=== PATIENT | male | born 1985 | race African-American/Black ===

== ENCOUNTER 2018-01-31 21:50 | Emergency (ER) | payer OTHER ==
[~2018-01-31] VITALS: Ht 175.3 cm; Wt 120.5 kg
[2018-01-31 21:55] VITALS: BP 136/90; TEMP 97.8
[2018-01-31 23:50] VITALS: PULSE 102
== END 2018-01-31 23:49 | disposition home or self-care (01) ==
LOC: COL.ER 21:50
DX: S01.512A Laceration without foreign body of oral cavity, initial encounter (principal); Y04.0XXA Assault by unarmed brawl or fight, initial encounter

== ENCOUNTER 2023-01-10 13:15 | Day surgery (SDC) | payer SELFPAY ==
[~2023-01-10] VITALS: Ht 175.3 cm; Wt 123.3 kg
[~2023-01-10 13:15] MED LIST: NORCO 325 MG-51 TAB PO; ZOFRAN ODT4 MG PO
[2023-01-10 13:51] VITALS: BP 143/94; PULSE 68; TEMP 97.3
[2023-01-10] MEDS ORDERED: PRILOTC PO (13:56)
[2023-01-10] MEDS ORDERED: CLARITIN 1010 MG/TAB PO (13:56)
[2023-01-10] MEDS ORDERED: CARAFATE 1GM1 G PO (15:30)
[2023-01-10 15:35] VITALS: BP 130/99; PULSE 73; TEMP 97.2
[2023-01-10 15:50] VITALS: BP 120/79; PULSE 85
--- NOTE | 2023-01-10 17:06 | NUR ---
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 D/C INSTRUCTIONS, ANY FOLLOW UP REVIEWED AND HANDED TO PT. ALL QUESTIONS AND CONCERNS ADDRESSED TO PT SATISFACTION. TAKEN TO EXIT VIA W/C WITH ALL BELONGINGS AND PAPERWORK IN HAND, ASSISTED INTO PASSENGER SEAT OF POV. TO DRIVE HOME.
== END 2023-01-10 16:15 | disposition home or self-care (01) ==
LOC: SDCO 13:15
DX: K29.01 Acute gastritis with bleeding (principal); K29.51 Unspecified chronic gastritis with bleeding; K21.00 Gastro-esophageal reflux disease with esophagitis, without bleeding; B96.81 Helicobacter pylori [H. pylori] as the cause of diseases classified elsewhere; K44.9 Diaphragmatic hernia without obstruction or gangrene; K80.20 Calculus of gallbladder without cholecystitis without obstruction; F17.210 Nicotine dependence, cigarettes, uncomplicated
CPT/HCPCS: J2704; J7120

== ENCOUNTER 2024-04-23 20:51 | Emergency (ER) | payer OTHER ==
[~2024-04-23] VITALS: Ht 175.3 cm; Wt 122.7 kg
[~2024-04-23 20:51] MED LIST changes: +CARAFATE 1GM1 G PO; +CLARITIN 1010 MG/TAB PO; +PRILOTC PO
[2024-04-23 21:04] VITALS: TEMP 97.8
[2024-04-23] MEDS ORDERED: PREDNISONE20 MG PO (21:44)
[2024-04-23] MEDS ORDERED: Ketorolac 30 MG/ML VIAL IM ONE (21:45)
[2024-04-23] MEDS ORDERED: Morphine 10 MG/ML VIAL IM ONE (21:45)
[2024-04-23 22:18] VITALS: BP 135/90; PULSE 87
== END 2024-04-23 22:21 | disposition home or self-care (01) ==
LOC: COL.ER 20:51
DX: M54.41 Lumbago with sciatica, right side (principal)
CPT/HCPCS: J1885; J2270; J2360